=== PATIENT | female | born 1980 | race Caucasian/White ===

== ENCOUNTER 2025-01-31 16:26 | Emergency (ER) | payer MEDICAID, SELFPAY ==
[2025-01-31 16:29] VITALS: BP 123/81; PULSE 69; RESP 18; TEMP 36.4; O2SAT 100
[2025-01-31 16:30] VITALS: BMI 19.9
[2025-01-31 16:51] VITALS: PULSE 76; RESP 20; O2SAT 97
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
[2025-01-31 17:51] LABS: Basophils # (Auto) 0.2 Thou/mm3 (0.0-0.2); Basophils % (Auto) 2 % (0-2.5); Eosinophils # (Auto) 0.3 Thou/mm3 (0.0-0.5); Eosinophils % (Auto) 2 % (0-10); Hematocrit 38.9 % (36.0-46.0); Hemoglobin 14.1 g/dL (12.0-16.0); Immature Granulocytes Auto 0.03 Thou/mm3 (0.00-0.00); Lymphocytes # (Auto) 1.4 Thou/mm3 (1.0-4.8); Lymphocytes % (Auto) 14 % (10-50); Mean Corpuscular HGB Conc 36.2 g/dl (31.0-37.0); Mean Corpuscular Hemoglobin 33.8 pg (25.0-35.0); Mean Corpuscular Volume 93 fL (80-100); Monocytes # (Auto) 0.8 Thou/mm3 (0.0-0.8); Monocytes % (Auto) 8 % (0-12); Neutrophils # (Auto) 7.7 Thou/mm3 (1.8-7.7); Neutrophils % (Auto) 74 % (37-80); Nucleated Red Blood Cell # 0.00 Thou/mm3 (0.00-0.00); Nucleated Red Blood Cell % 0 /100 WBC (0); Platelet Count 259 Thou/mm3 (140-440); RDW Standard Deviation 39.9 fL (36.4-46.3); Red Blood Count 4.17 Miln/mm3 (4.00-5.20); White Blood Count 10.4 Thou/mm3 (3.6-11.0)
[2025-01-31 18:08] LABS: Alanine Aminotransferase 25 U/L (10-49); Albumin, Serum 4.3 gm/dL (3.5-5.0); Albumin/Globulin Ratio 1.8 (1.2-2.2); Alkaline Phosphatase 84 U/L (46-116); Anion Gap 8 (7-16); Aspartate Amino Transferase 34 U/L (0-34); BUN/Creatinine Ratio 11 Ratio (12-20); Bilirubin,Total 1.1 mg/dL (0.3-1.2); Blood Urea Nitrogen 9 mg/dL (9-23); Calcium 9.1 mg/dL (8.3-10.6); Calcium (Corrected) 9.1 mg/dL (8.5-10.1); Carbon Dioxide 27.1 mMol/L (20.0-31.0); Chloride 107 mMol/L (98-107); Creatinine (Component) 0.8 mg/dL (0.6-1.3); Estimated Creatinine Clearance 87.7 mL/min (>60); Globulin 2.4 gm/dL (2.3-3.5); Glucose 127 mg/dL (74-106); Osmolality,Calculated 283 (275-295); Potassium 3.8 mMol/L (3.4-5.1); Sodium 142 mMol/L (136-145); Thyroid Stimulating Hormone 4.89 uIU/mL (0.55-4.78); Total Protein 6.7 gm/dL (5.7-8.2); eGFR > 60 See Note
[2025-01-31 18:09] VITALS: BP 106/63; PULSE 65; RESP 16; TEMP 36.9; O2SAT 99
== END 2025-01-31 19:49 | disposition home or self-care (01) ==
PROVIDERS: Physician Assistant Medical; Emergency Provider Emergency Medicine
DX: T78.40XA Allergy, unspecified, initial encounter (principal); F41.1 Generalized anxiety disorder; E06.3 Autoimmune thyroiditis
CPT/HCPCS: 36415; 80053; 84443; 85025; 99283

== ENCOUNTER 2025-02-19 19:48 | Emergency (ER) | payer MEDICAID, SELFPAY ==
[2025-02-19 20:37] VITALS: BP 114/78; PULSE 69; RESP 17; TEMP 36.8; O2SAT 96; BMI 19.9
--- NOTE | 2025-02-19 20:59 | EDNOTE_ITS ---
ED General RME/HPI General Chief complaint: General Adult/Misc Complain Stated complaint: BEE STING Time Seen by Provider: 02/19/25 20:02 Arrival date/time: 02/19/25 19:48 RME / HPI RME / HPI narrative: 45-year-old female patient with significant history of multiple allergies, came in for evaluation regarding swelling to the hand. Patient got a bee sting yesterday, and today noticed some swelling to the left wrist and hand. Patient is able to bend and extend the finger without any limitation. Patient noticed swelling of the throat earlier today. Patient took Benadryl. Denies any other complaints no medications taken prior to arrival. Related Data Previous Rx's ?Medication ?Instructions ?Recorded amoxicillin 500 mg capsule 1,000 mg (2 x 500 mg) PO BI D #28 01/23/18 caps hydrocodone 5 mg-acetaminophen 325 1 tab PO TID #10 ta bs 01/23/18 mg tablet ([place]) famotidine 40 mg tablet 40 mg PO QDAY #30 tabs 05/01 omeprazole 40 mg capsule,delayed 40 mg PO QDAY #30 cap s 05/01/24 release amoxicillin 875 mg-potassium 1 tab PO TID 5 days #15 t abs 02/19/25 clavulanate 125 mg tablet cetirizine 10 mg tablet (Zyrtec) 10 mg PO QDAY #5 tabs 02/19/25 famotidine 40 mg tablet (Pepcid) 40 mg PO BID #10 tabs 02/19/25 prednisone 50 mg tablet 50 mg PO QDAY #5 tabs Allergies Allergy/AdvReac Type Severity Reaction Status Date / Time almond Allergy Unknown Verified 02/19/25 20:44 meperidine Allergy Unknown Verified 02/19/25 20:44 neomycin Allergy Unknown Verified 02/19/25 20:44 MIKE MAYO Allergy Unknown Uncoded 02/19/25 20:44 MYCIN FAMILY Allergy Unknown Uncoded 02/19/25 20:44 Review of Systems Review of Systems Narrative Review of Systems: Review of system reviewed and within normal limits except mentioned in HPI ED Exam Narrative Physical exam: VITAL SIGNS: Reviewed. GENERAL APPEARANCE: Alert and interactive, follows commands, no acute distress, HEAD AND FACE: Non-traumatic. ENT: PERRL, pink conjunctivitis, eyelid no trauma, Mucous membrane moist. NECK: Supple, nontender, no nuchal rigidity. CHEST: No tenderness, no crepitus, no paradoxical movement, no retractions. LUNGS: Clear, well ventilated, symmetric, no rales, no wheezing, no ronchi, no stridor, good breath sounds bilaterally. HEART: Regular rate, regular rhythm, no murmur, no gallops. ABDOMEN: Soft, positive bowel sounds, nondistended, no guarding, nontender, no rebound, no masses, RECTAL: Deferred. GENITAL: Deferred. NEUROLOGICAL: Gross motor function intact sensory function intact, Appropriate for age. MUSCULOSKELETAL: low back nontender, full range of motion. EXTREMITIES: Swelling to the right wrist volar aspect, and swelling also to the right hand palmar aspect with full range of motion of the fingers, no redness noted SKIN: Color pink, dry, no rash, no lacerations, no abrasions, no contusions. LYMPHATICS: Deferred. Course Quality Measures none Orders Category Date Time Status Dexamethasone Inj [Decadron Inj] Med 02/19/25 21:45 Discontinued 15 mg IVP X1 ONE Dexamethasone Inj [Decadron Inj] 15 mg Med 02/19/25 20:57 Discontinued Sodium Chloride 0.9% [Ns] 50 ml IV X1 DiphenhydrAMINE INJ [Benadryl Inj] Med 02/19/25 20:57 Discontinued 25 mg IVP X1 ONE Famotidine Inj [Pepcid Inj] Med 02/19/25 20:57 Discontinued 20 mg IVP X1 ONE Morphine Inj Med 02/19/25 21:56 Discontinued 4 mg IVP X1 ONE Ringers Lactated 1000 ml [Lactated Ringers] 1,000 ml Med 02/19/25 20:58 Discontinued IV 999 mls/hr [id number] [Rocephin] 2 gm Med 02/19/25 22:49 Active SODIUM CHLORIDE 0.9% ([place]) [Ns 0.9% (P)] 50 ml IV X1 Vital Signs Vital signs: Vital Signs Temperature 98.3 F 02/19/25 20:37 Pulse Rate 69 02/19/25 20:37 Respiratory Rate 17 02/19/25 20:37 Blood Pressure 114/78 02/19/25 20:37 Pulse Oximetry (%) 96 02/19/25 20:37 Oxygen Delivery Method Room Air 02/19/25 20:37 Discharge Plan Plan Patient Disposition: HOME (Self Care) Discharge Disposition comment: Stable Prescriptions/Referrals Prescriptions/Med Rec: New famotidine [Pepcid] 40 mg tablet 40 mg PO BID Qty: 10 0RF prednisone 50 mg tablet 50 mg PO QDAY Qty: 5 0RF cetirizine [Zyrtec] 10 mg tablet 10 mg PO QDAY Qty: 5 0RF amoxicillin-pot clavulanate 875-125 mg tablet 1 tab PO TID 5 Days Qty: 15 0RF No Action amoxicillin 500 mg capsule 1,000 mg PO BID Qty: 28 0RF hydrocodone-acetaminophen [[place]] 5-325 mg tablet 1 tab PO TID MDD pain Qty: 10 0RF famotidine 40 mg tablet 40 mg PO QDAY Qty: 30 0RF omeprazole 40 mg capsule,delayed release(DR/EC) 40 mg PO QDAY Qty: 30 0RF Referrals: No Primary/Family,Physician [Primary Care Provider] - In 1 week Problem List Clinical Impression: Hand swelling, Bee sting allergy Patient/Caregiver Discharge Instructions Discharge Activity: activity as tolerated Education Materials: ED Bite Sting Insect Gen Allergic React Additional Instructions: Thank you for the opportunity for serving you today. You are stable for discharged . You are advised to: Follow-up with your PCP in 1 to 2 days Return to ED for worsening of symptoms, redness, worsening swelling, unable to bend and extend the finger, fever Increase oral fluids Take medication as prescribed Elevate your hand as needed Print Language: Citizen [place] Stand Alone Forms: Abril Award Info., Patient Portal Info Letter PA/CHRISSY Supervising Physician PA/CHRISSY Supervising Physician: MD Radha [facility] Narrative [facility] hospital course: 45-year-old female patient with significant history of multiple allergies, came in for evaluation regarding swelling to the hand. Patient got a bee sting yesterday, and today noticed some swelling to the left wrist and hand. Patient is able to bend and extend the finger without any limitation. Patient noticed swelling of the throat earlier today. Patient took Benadryl. Denies any other complaints no medications taken prior to arrival. Patient received Decadron, Pepcid and Benadryl. Was also given ceftriaxone IV because of possible cellulitis secondary to bee sting allergy. On reevaluation patient verbalized significant decrease in the swelling. Able to flex the fingers fully. There is no sign of flexor tenosynovitis. At this time Will be sent the patient home on prednisone, Zyrtec, Pepcid and Augmentin. She is stable for discharge home. Medication Administration(s) Medication Administration History Ceftriaxone Sodium 2 gm/ (Sodium Chloride) 50 mls @ 100 mls/hr IV X1 ONE Stop: 02/19/25 23:18 Discontinued Medications Dexamethasone Sodium Phosphate (Dexamethasone Sod Phos Inj 10 Mg/Ml Vial) 15 mg IVP X1 ONE Stop: 02/19/25 21:46 Last Admin: 02/19/25 21:52 Dose: 15 mg Documented By: SE Diphenhydramine HCl (Diphenhydramine Inj 50 Mg/Ml Vial) 25 mg IVP X1 ONE Stop: 02/19/25 20:58 Last Admin: 02/19/25 21:31 Dose: 25 mg Documented By: SE Famotidine (Famotidine Inj 10 Mg/Ml Vial 2 Ml) 20 mg IVP X1 ONE Stop: 02/19/25 20:58 Last Admin: 02/19/25 21:33 Dose: 20 mg Documented By: SE Dexamethasone Sodium Phosphate (15 mg/ Sodium Chloride) 51.5 mls @ 103 mls/hr IV X1 ONE Stop: 02/19/25 20:58 Last Admin: 02/19/25 21:45 Dose: Not Given Documented By: SE Non-Admin Reason: Cancelled by Provider Lactated Ringer's (Lactated Ringers) 1,000 mls @ 999 mls/hr IV .Q1H1M ONE Stop: 02/19/25 21:58 Last Infusion: 02/19/25 22:30 Dose: Infused Documented By: Admin: 02/19/25 21:30 Dose: 999 mls/hr Documented By: SE Morphine Sulfate (Morphine Sulf Inj 10 Mg/Ml Vial) 4 mg IVP X1 ONE Stop: 02/19/25 21:57 Last Admin: 02/19/25 22:07 Dose: 4 mg Documented By: CCT Diagnosis Differential diagnosis: Bee sting allergy hand, cellulitis hand, hand pain and swelling Most likely dx, and/or detailed dx discussion: HAnd swelling, bee sting allergy and Dispositon Disposition: Discharge Home
[2025-02-19] MEDS: RINGERS LACTATED 1000 ML 1,000 ML 999 ML IV (21:30)
[2025-02-19] MEDS: FAMOTIDINE INJ 10 MG/ML VIAL 2 ML 20 MG IVP (21:33)
[2025-02-19] MEDS: DEXAMETHASONE SOD PHOS INJ 10 MG/ML VIAL 15 MG IVP (21:52)
[2025-02-19 22:00] VITALS: BP 149/88; PULSE 64; RESP 16; TEMP 36.6; O2SAT 100
[2025-02-19] MEDS: MORPHINE SULF INJ 10 MG/ML VIAL 4 MG IVP (22:07)
[2025-02-19] MEDS: cefTRIAXone 2 GM in SODIUM CHLORIDE 0.9% (Popper) 50 ML IV (23:03)
[2025-02-19 23:35] VITALS: BP 134/89; PULSE 60; RESP 18; TEMP 36.6; O2SAT 99
== END 2025-02-19 23:35 | disposition home or self-care (01) ==
PROVIDERS: Emergency Provider Emergency Medicine
DX: T63.441A Toxic effect of venom of bees, accidental (unintentional), initial encounter (principal); M79.89 Other specified soft tissue disorders
CPT/HCPCS: 96361; 96365; 96375; 99283; J0696; J1100; J1200; J2270; J3490; J7050; J7120